=== PATIENT | male | born 1960 | race Caucasian/White ===

== ENCOUNTER 2017-05-20 08:55 | Emergency (ER) | payer BC ==
[~2017-05-20] VITALS: Ht 180.3 cm; Wt 100.0 kg
[~2017-05-20 08:55] MED LIST: AMOXICILLIN 8751 TAB PO; PERCOCET 325 MG1 TA2 PO; VOLTAREN 75 DR75 MG PO; ZOCOR 40MG40 MG PO
[2017-05-20 08:58] VITALS: BP 152/86; PULSE 105; TEMP 97.9
[2017-05-20] MEDS ORDERED: ALIGN PO (09:16)
[2017-05-20] MEDS ORDERED: NORCO 325 MG-51 TAB PO (09:17)
== END 2017-05-20 10:06 | disposition home or self-care (01) ==
LOC: COL.ER 08:55
DX: T22.231A Burn of second degree of right upper arm, initial encounter (principal); T24.211A Burn of second degree of right thigh, initial encounter; T24.231A Burn of second degree of right lower leg, initial encounter; T24.232A Burn of second degree of left lower leg, initial encounter; T20.10XA Burn of first degree of head, face, and neck, unspecified site, initial encounter; X08.8XXA Exposure to other specified smoke, fire and flames, initial encounter

== ENCOUNTER → 2020-01-21 | Outpatient (CLI) | payer BC ==
[~2020-01-21] MED LIST changes: +ALIGN PO; +BACTRIM DS 8001 TAB PO; +NORCO 325 MG-51 TAB PO
[2020-01-21 13:19] VITALS: BP 122/82; PULSE 80; TEMP 98
== END ==
LOC: COL.ER 13:11
DX: S61.412D Laceration without foreign body of left hand, subsequent encounter (principal)